=== PATIENT | female | born 1990 | race Caucasian/White ===

== ENCOUNTER 2024-05-06 21:29 | Emergency (ER) | payer OTHER, SELFPAY ==
[2024-05-06 21:29] VITALS: BP 112/77; PULSE 76; RESP 18; TEMP 36.7; O2SAT 97; BMI 28.7
--- NOTE | 2024-05-06 21:50 | EDS_ITS ---
HPI HPI - Psych History of Present Illness Chief Complaint: Suicidal Informant: patient Onset/Context/Timing Onset: Today Context: Sudden Onset Timing: Continuous Worsened by: - (Nothing) Relieved by: Nothing Associated Symptoms Associated Symptoms - Psych: Positive for Depressed and Suicidal Thoughts; Neg ative for Visual Hallucinations or Auditory Hallucinations Specific plan (suicidal thought): Patient denies any specific plan. Narrative Narrative: Patient presents with depression and suicidal ideations that became worse tonight. Patient states that she started having suicidal thoughts tonight but denies any plan. Patient states she has a history of depression. Patient is evasive with questioning. Patient admits to using cocaine tonight. Patient states nothing makes her depression worse and nothing makes it better. Patient denies any other symptoms. [facility] Medical History Anxiety Depression Home Medications ?Medication ?Instructions ?Recorded ?Last Taken ?Type bupropion HCl 150 mg 24 hr tablet, 150 mg PO DAILY 05/06/24 Unknown History extended release escitalopram oxalate 20 mg tablet 20 mg PO DAILY 05/06/24 Unknown History Allergy/AdvReac Type Severity Reaction Status Date / Time cefaclor (From Replaced By [facility]) Allergy Mild RASH Verified 05/06/24 21:32 Surgical History Hx of cholecystectomy Social History Smoking Status: Light Smoker (<10/day) ROS ROS ED Constitutional Constitutional ED: Denies chills or fever(s) Eyes Eyes: Denies blurry vision or change in vision ENT ENT ED: Denies rhinorrhea or sore throat Cardiovascular Cardiovascular: Denies chest pain or palpitations Respiratory/Chest Respiratory/Chest: Denies cough or dyspnea Gastrointestinal Gastrointestinal: Denies nausea or vomiting Genitourinary Genitourinary ED: Denies dysuria or hematuria Musculoskeletal Musculoskeletal: Denies back pain or neck pain Integumentary Denies abscess or rash Neurologic Neurologic: Denies headache(s) or weakness Psychiatric Psychiatric: Reports depression, suicidal ideation and suicidal thoughts Allergic/Immunologic Allergic/Immunologic ED: Denies mouth swelling or urticaria EXAM Physical Exam Const Vital Signs: 05/06/24 21:29 05/06/24 22:29 Temperature 98.1 F Temperature Source Oral Pulse Rate 76 69 Respiratory Rate 18 18 Blood Pressure 112/77 115/74 Blood Pressure Mean 88 87 Pulse Ox 97 98 Oxygen Delivery Method Room Air Room Air Positive well nourished and well developed General Appearance ED: well developed and NAD HEENT Reports moist mucous membranes Eyes PERRL and EOMs intact bilaterally Neck supple and no JVD Resp normal respiratory effort and clear to auscultation bilaterally Cardio Rate: regular rate Rhythm: regular rhythm GI non-tender and non-distended Palpation: soft Neuro oriented x3, CN's II-XII intact bilaterally and no sensory deficits noted Marisol Coma Scale: document GCS findings Spontaneous Obeys Commands Oriented 15 Sensorium / Orientation: alert Motor Exam: strength 5/5 throughout Psych mental status grossly normal and cooperative Appearance: grossly normal Attitude: calm Speech: minimal Mood & Affect: depressed and flat affect Thought Content: suicidality, No homicidality, No delusion(s) and No hallucination(s) MDM MDM MDM Narrative Medical decision making narrative: Medical screening labs will be obtained. CBC will be obtained to assess for leukocytosis and anemia. Basic metabolic profile will be obtained to assess for electrolyte abnormality and renal function. Serum hCG will be obtained to assess for . Serum alcohol level will be obtained to assess for alcohol intoxication. Urine tox screen will be obtained to assess for substance abuse. Patient will need to be evaluated by crisis. Lab Data Lab results narrative: Urine tox screen was reviewed and was positive for cocaine. Serum alcohol level was reviewed and was elevated at 159. Serum hCG was reviewed and was negative. Basic metabolic profile was reviewed. Potassium was slightly low at 3.2. The remainder is within normal limits. CBC was reviewed and was within normal limits. Labs: Laboratory Results - last 24 hr 05/06/24 05/06/24 21:43 22:10 WBC 6.5 RBC 4.51 Hgb 13.7 Hct 41.6 MCV 92.2 MCH 30.4 MCHC 32.9 RDW Std Deviation 39.2 RDW Coeff of Mitra 11.5 L Plt Count 345 MPV 8.7 Immature Gran % (Auto) 0.300 Neut % (Auto) 52.6 Lymph % (Auto) 35.4 [place] % (Auto) 8.3 Eos % (Auto) 2.5 Baso % (Auto) 0.9 Absolute Neuts (auto) 3.4 Absolute Lymphs (auto) 2.29 Nucleated RBC % 0 Sodium 141 Potassium 3.2 L Chloride 108 H Carbon Dioxide 25.0 Anion Gap 8 BUN 18 Creatinine 0.85 Estim Creat Clear Calc 95.53 Est GFR (MDRD) Af Amer 98 Est GFR (MDRD) Non-Af 81 BUN/Creatinine Ratio 21.2 H Glucose 106 Calcium 9.2 Serum , Qual NEGATIVE Urine Opiates Screen NEGATIVE Urine Methadone Screen NEGATIVE Ur Barbiturates Screen NEGATIVE Ur Phencyclidine Scrn NEGATIVE Ur Amphetamines Screen NEGATIVE MDMA (Ecstasy) Screen NEGATIVE U Benzodiazepines Scrn NEGATIVE Urine Cocaine Screen POSITIVE H U Cannabinoids Screen NEGATIVE Ur Drug Screen Comment Ethyl Alcohol 159.0 Treatment and Re-Evaluation Narrative: Patient will be observed until sober. Crisis will need to evaluate the patient at that time. Care of the patient was turned over to the oncoming physician pending crisis evaluation. Discharge Plan Triage Chief Complaint: Suicidal ED Provider: Pradip Eugene Dx/Rx/DC Orders Clinical Impression: Depression Prescriptions: No Action escitalopram oxalate 20 mg tablet 20 mg PO DAILY bupropion HCl 150 mg tablet extended release 24 hr 150 mg PO DAILY Primary Care Provider: Care Physician,No Primary Referrals: NOT,DEFINED [Non-Staff] - Print Language: Kazakh
[2024-05-06 22:19] LABS: Amphetamine Urine VISTA NEGATIVE (<1000 ng/mL); Barbiturate Urine VISTA NEGATIVE (< 200 ng/mL); Benzodiazepine Urine VISTA NEGATIVE (< 200 ng/mL); Cocaine Urine VISTA POSITIVE (< 300 ng/mL); Ecstacy Urine VISTA NEGATIVE (< 500 ng/mL); Methadone Urine VISTA NEGATIVE (< 300 ng/mL); PCP Urine VISTA NEGATIVE (< 25 ng/mL); THC Urine VISTA NEGATIVE (< 50 ng/mL); Vista UDS pH Range 6
[2024-05-06 22:20] LABS: Absolute Lymphocyte Count 2.29 X10^3/uL (0.83-4.51); Absolute Neutrophil Count 3.4 X10^3/uL (2.0-7.7); Basophil# 0.06 X10^3/uL; Basophil% 0.9 % (0-1); Eosinophil# 0.16 X10^3/uL; Eosinophils% 2.5 % (0-5); Hematocrit 41.6 % (37-47); Hemoglobin 13.7 g/dL (12.0-15.0); Lymphocyte # 2.29 X10^3/ul (0.83-4.51); Lymphocyte % 35.4 % (19-41); Mean Corp Hgb Conc 32.9 g/dL (32-36); Mean Corpuscular Hgb 30.4 pg (27.0-32.0); Mean Corpuscular Volume 92.2 fL (81-99); Mean Platelet Vol. 8.7 fl (6.2-12.0); Monocyte# 0.54 X10^3/uL; Monocyte% 8.3 % (0-10); NRBC Flagged by Analyzer 0 % (0-5); Neutrophil % 52.6 % (47-70); Platelet Count 345 K/mm3 (150-450); RBC Distribution Width CV 11.5 % (11.6-14.6); RBC Distribution Width SD 39.2 fl (35.1-43.9); Red Blood Count 4.51 M/mm3 (4.2-5.4); White Blood Count 6.5 K/mm3 (4.4-11.0)
[2024-05-06 22:29] VITALS: BP 115/74; PULSE 69; RESP 18; O2SAT 98
[2024-05-06 22:29] LABS: Internal QC Validated? YES +Cl - CLEAR BKGD; Pregnancy, Serum, hCG Quali. NEGATIVE Negative
[2024-05-06 22:33] LABS: Anion Gap 8 (5-15); BUN 18 mg/dL (7-18); BUN/Creat Ratio 21.2 RATIO (10-20); Calcium,Total 9.2 mg/dL (8.5-10.1); Chloride 108 mmol/L (98-107); Creatinine, Serum 0.85 mg/dL (0.55-1.02); EST Glomerular Filtration Rate 81 mL/min (>60); Est Glom Filt Rate - Afr Amer 98 mL/min (>60); Estimated Creatinine Clearance 95.53 ml/min; Glucose 106 mg/dL (74-106); Potassium 3.2 mmol/L (3.5-5.1); Sodium Level 141 mmol/L (136-145)
--- NOTE | 2024-05-06 23:28 | ED.RN ---
CHART FAXED TO CRISIS, CRISIS AWARE PT WILL NEED EVALUATED AFTER ALCOHOL REDRAW
[2024-05-07] MEDS: Ondansetron ODT 4 MG Tablet PO (01:58)
--- NOTE | 2024-05-07 02:51 | ED.RN ---
pt accepted at [facility] n2n [phone]
[2024-05-07 07:10] VITALS: BP 115/80; PULSE 64; RESP 16; O2SAT 99
[2024-05-07 11:30] VITALS: BP 114/78; PULSE 72; RESP 16; TEMP 36.4; O2SAT 99
== END 2024-05-07 11:30 ==
LOC: ED 22:17
PROVIDERS: Emergency Provider Emergency Medicine; Visit Provider Emergency Medicine
DX: R45.851 Suicidal ideations (principal); F32.A Depression, unspecified; F17.200 Nicotine dependence, unspecified, uncomplicated
CPT/HCPCS: 36415; 80048; 80307; 82077; 84703; 85025; 99285